=== PATIENT | female | born 1945 ===

== ENCOUNTER 2023-05-03 12:58 | Oncology outpatient (recurring) (ONCR) | payer MEDICARE, OTHER, SELFPAY | END 2023-05-05 23:59 | disposition home or self-care (01) | PROVIDERS: Visit Provider Internal Medicine Hematology & Oncology | DX: Z53.9 Procedure and treatment not carried out, unspecified reason (principal) ==

== ENCOUNTER 2023-05-31 14:00 | Oncology outpatient (recurring) (ONCR) | payer MEDICARE, OTHER, SELFPAY ==
--- NOTE | 2023-05-08 15:11 | N.ONRAD NP_ITS ---
Radiation Oncology Consultation Patient Name: Leonora Phelps Date of : 1945 Date of Service: 05/08/2023 Attending Physician: Eren Juarez M.D. Leonora Phelps was seen in in consultation this afternoon at the request Aneesh Miner M.D. for consideration of postmastectomy radiotherapy in the management of a recently breast cancer A screening mammogram (independently reviewed in [facility]) obtained on January 06, 2023 identified an asymmetry in the upper-outer quadrant of the right breast. A 3D tomosynthesis mammogram confirmed the architectural distortion. Ultrasonography demonstrated a 1 cm x 0.9 cm x 0.4 cm hypoechoic mass at the 11 o'clock position within the right breast that was 5 cm from the nipple. An ultrasound-guided needle core biopsy completed on February 22, 2023 diagnosed a lobular carcinoma. The Breast Cancer Prognostic Profile was positive for estrogen receptor (95%) but negative for progesterone receptor and HER-2 (1+). The KI-67 was 3%. The pathology report (requested from the outside hospital and reviewed in [facility]) confirmed a multifocal grade 2 lobular carcinoma. The largest invasive focus was 8 mm. 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 Invasive carcinoma was present at the surgical margin. A total of 4 sentinel lymph nodes were harvested with one lymph node (1.8 mm) harboring metastatic disease without extranodal extension. In consideration of multifocal disease, a right mastectomy and immediate reconstruction with insertion of a permanent [place] gel implant was completed on April 24, 2023. Histological assessment of the mastectomy specimen revealed multi-focal grade 1 invasive lobular carcinoma with the largest focus measuring 1.9 cm. LCIS was present. All surgical margins were negative for invasive carcinoma. An Oncotype DX breast recurrence score was 18. The patient was referred for postmastectomy radiotherapy. I reviewed with Ms. Phelps the [place] [employer] Staging for breast cancer and specifically the patient's pathological stage IA ([id number]) breast cancer. I also discussed the definition micrometastasis and that the role of postmastectomy radiotherapy patients with N1mic disease not been well-defined. A retrospective analysis using the National Cancer [place] Surveillance, Epidemiology, and End Results database published in the International Journal of Radiation Oncology Biology and Physics and the journal The Breast reported no difference in either overall survival or disease specific survival between postmastectomy radiotherapy and no radiotherapy. These results suggested that postmastectomy radiotherapy does not impact survival among breast cancer patients with fransisca micrometastases. According to the National Comprehensive Cancer Network Guidelines, postmastectomy radiotherapy is indicated for one or more macrometastases. This endorsement is in accordance to the classic studies by the [place] [employer] and the Early Breast Cancer Trialists??? Collaborative Group. These studies demonstrated an overall survival improvement in patients treated with PMRT. In consideration of the published data, radiotherapy would not be recommended. The patient's medical treatment plan has been discussed with Corina James M.D. Signed by: Dr. Eren Juarez 05/08/2023 3:11:58 PM
[2023-05-31 13:55] VITALS: BP 153/85; PULSE 93; RESP 18; TEMP 37.1; O2SAT 99
[2023-05-31 14:19] LABS: Basophils # 0.1 10^3/uL (0.0-0.1); Eosinophils # 0.6 10^3/uL (0.0-0.8); Eosinophils % 8.5 %; Hemoglobin 14.8 g/dL (11.5-15.3); Lymphocytes % 28.5 %; Mean Corpuscular HGB Conc 33.6 g/dL (30.0-36.0); Mean Corpuscular Volume 95.2 fl (81-99); Monocytes # 0.5 10^3/uL (0.2-0.9); Monocytes % 7.6 %; Neutrophils # 3.75 10^3/uL (1.8-7.7); Neutrophils % 54.1 %; Nucleated Red Blood Cells % 0 %; Platelet Count 194 10^3/cmm (130-400); Red Blood Count 4.62 10^6/uL (4.1-5.3); Red Cell Distribution Width 12.5 % (12.1-15.1); White Blood Count 6.9 10^3/uL (4.0-10.0)
[2023-05-31 14:42] LABS: Alanine Aminotransferase 22 U/L (0-33); Albumin Level 3.7 g/dL (3.5-5.2); Alkaline Phosphatase 140 U/L (35-105); Anion Gap 15.7 (5-19); Aspartate Amino Transferase 21 U/L (0-32); Blood Urea Nitrogen 16 mg/dL (8-23); Calcium 9.1 mg/dL (8.5-10.5); Carbon Dioxide 28 mmol/L (22-29); Chloride 100 mmol/L (98-107); Glucose 146 mg/dL (65-115); Osmolality Calculated 294 mOsm/kg (285-295); Potassium 3.7 mmol/L (3.5-5.1); Sodium 140 mmol/L (136-145); Total Bilirubin 0.2 mg/dL (0.15-1.2); Total Protein 6.7 g/dL (6.6-8.7)
== END 2023-06-05 23:59 | disposition home or self-care (01) ==
PROVIDERS: Internal Medicine Hematology & Oncology; PCP Internal Medicine; Visit Provider Radiology Radiation Oncology
DX: C50.811 Malignant neoplasm of overlapping sites of right female breast (principal); Z17.0 Estrogen receptor positive status [ER+]; C77.8 Secondary and unspecified malignant neoplasm of lymph nodes of multiple regions; Z90.13 Acquired absence of bilateral breasts and nipples; Z79.811 Long term (current) use of aromatase inhibitors; R74.8 Abnormal levels of other serum enzymes
CPT/HCPCS: 36415; 80053; 85025; 99204; 99214

== ENCOUNTER 2023-09-04 08:12 | Oncology outpatient (recurring) (ONCR) | payer MEDICARE, OTHER, SELFPAY ==
[2023-09-04 08:57] LABS: Basophils # 0.1 10^3/uL (0.0-0.1); Basophils % 0.6 %; Eosinophils # 0.5 10^3/uL (0.0-0.8); Eosinophils % 5.9 %; Hematocrit 43.9 % (36-47); Lymphocytes # 1.5 10^3/uL (0.8-4.8); Lymphocytes % 17.6 %; Mean Corpuscular HGB Conc 33.3 g/dL (30-55); Mean Corpuscular Hemoglobin 30.9 pg (27-33); Mean Platelet Volume 9.3 fL (7.4-10.4); Monocytes # 0.7 10^3/uL (0.2-0.9); Monocytes % 8.7 %; Neutrophils # 5.67 10^3/uL (1.8-7.7); Neutrophils % 66.8 %; Nucleated Red Blood Cells % 0 %; Platelet Count 184 10^3/cmm (157-399); Red Blood Count 4.72 10^6/uL (3.85-5.65); Red Cell Distribution Width 12.7 % (12.1-15.1); White Blood Count 8.48 10^3/uL (3.29-11.43)
[2023-09-04 09:21] LABS: Alanine Aminotransferase 17 U/L (0-33); Albumin Level 3.8 g/dL (3.5-5.2); Alkaline Phosphatase 130 U/L (35-105); Anion Gap 10.7 (5-19); Aspartate Amino Transferase 17 U/L (0-32); Blood Urea Nitrogen 15 mg/dL (8-23); Calcium 9.4 mg/dL (8.5-10.5); Carbon Dioxide 31 mmol/L (22-29); Chloride 99 mmol/L (98-107); Globulin 2.9 g/dL (1.3-4.6); Glucose 126 mg/dL (65-115); Osmolality Calculated 286 mOsm/kg (285-295); Potassium 3.7 mmol/L (3.5-5.1); Sodium 137 mmol/L (136-145); Total Bilirubin 0.4 mg/dL (0.15-1.2); Total Protein 6.7 g/dL (6.6-8.7)
== END 2023-09-05 23:59 | disposition home or self-care (01) ==
PROVIDERS: Nurse Practitioner Family; PCP Internal Medicine; Visit Provider Radiology Radiation Oncology
DX: C50.911 Malignant neoplasm of unspecified site of right female breast (principal); Z17.0 Estrogen receptor positive status [ER+]; Z79.899 Other long term (current) drug therapy
CPT/HCPCS: 36415; 80053; 85025; 99215